=== PATIENT | male | born 1965 | race Two or more races ===

== ENCOUNTER → 2018-09-08 | Day surgery (SDC) | payer OTHER ==
[~2018-09-08] MED LIST: CETI10TA22 PO; GABA600T7 PO; LIDOCAINE 1% PF 2 ML VIAL. ID PRN; LISI10TA2 PO; MIDAZOLAM HCL/PF 2 MG/2 ML VIAL. IV PRN; PANT20TA2 PO; PENT400T7 PO; PROPOFOL 40 ML IV ONE; fentaNYL PF VIAL 100 MCG/2 ML VIAL IV PRN
[2018-09-08] MEDS: IV RINGERS,LACTATED 1000ML 1,000 ML IV SCH ×2 (08:17→09:26)
[2018-09-08 10:11] VITALS: BP 136/89
--- NOTE | 2018-09-09 17:13 | PATHOLOGY ---
[facility] Accession Number: [id number] . 01 Material submitted: . PART A: BIOPSY ANTRUM PART B: BIOPSY INCISURE PART C: BIOPSY DISTAL GASTRIC BODY PART D: BIOPSY PROXIMAL GASTRIC BODY PART E: BIOPSY CARDIA PART F: BIOPSY FUNDUS PART G: BIOPSY GASTRIC POLYPS PART H: BIOPSY IRREGULAR Z LINE GE JUNCTION . 01 Clinical history: . Intestinal metaplasia . 02 Diagnosis: A. Gastric biopsy, antrum: - Chronic gastritis, mild. . B. Gastric biopsy, incisura: - Chronic gastritis, mild. . C. Gastric biopsy, distal gastric body: - Mild superficial chronic gastritis. . D. Gastric biopsy, proximal gastric body: - Mild superficial chronic gastritis. . E. Gastric biopsy, gastric cardia: - Mild superficial chronic gastritis. . F. Gastric biopsy, gastric fundus: - Mild superficial chronic gastritis. . G. Gastric biopsy, gastric polyps: - Fundic gland polyps. . H. Gastroesophageal junction biopsy, irregular Z-line: - Segments of esophagogastric mucosa showing chronic inflammation, consistent with reflux changes. . (LILIAM:carmella; 09/09/2018) MBR/09/09/2018 . 02 Comment: Sections of the gastric antral biopsy reveal segments of gastric antral and antral/body transition mucosa showing mild chronic inflammation. A properly controlled immunoperoxidase stain for Helicobacter is negative for Helicobacter organisms. Sections of the gastric incisura biopsy reveal segments of gastric body mucosa showing mild chronic inflammation. Sections of the distal gastric body, proximal gastric body, gastric cardia, and gastric fundic biopsies appear similar and show a mild superficial chronic gastritis. Immunoperoxidase stains for Helicobacter are obtained on the distal gastric body, proximal gastric body, gastric cardia, and gastric fundic biopsies, all of which are negative for Helicobacter organisms. All of the gastric biopsies show no evidence of intestinal metaplasia, dysplasia, or malignancy. Sections of the gastric polyp biopsies reveal four fundic gland polyps. There are no adenomatous changes or evidence of malignancy. Sections of the gastroesophageal junction biopsy reveal segments of esophagogastric mucosa showing chronic inflammation. The esophageal mucosa focally appears mildly hyperplastic and contains a few intraepithelial eosinophils. The findings are consistent with reflux changes. There is no evidence of Mckinney's change, dysplasia, or malignancy. . Special stains performed: Immunoperoxidase stains for Helicobacter on A1, C1, D1, E1, F1. . (JPM:waterproof bag sewer; 09/09/2018) . 02 Electronically signed: . Newton Matthew MD, Pathologist NPI- [id number] . 01 Gross description: . A. Received in formalin labeled "Toribio Charliephilipp, BX antrum," is a single segment of lees soft tissue measuring 0.5 cm in maximum dimension. The specimen is entirely submitted in cassette A1. . B. Received in formalin labeled "Toribio Charliedanetteat, BX incisure," are 2 segments of lees soft tissue measuring 1.0 x 0.3 x 0.2 cm in aggregate dimensions and ranging from 0.4 to 0.6 cm in maximum dimension. The specimen is submitted entirely in cassette B1. . C. Received in formalin labeled "Rooney, Charliedanetteat, BX distal gastric body," are 4 segments of lees soft tissue measuring 1.0 x 0.6 x 0.2 cm in aggregate dimensions and ranging from 0.3 to 0.5 cm in maximum dimension. The specimen is submitted entirely in cassette C1. . D. Received in formalin labeled "Rooney, [place], BX proximal gastric body," are 4 segments of lees soft tissue measuring 0.8 x 0.6 x 0.1 cm in aggregate dimensions and ranging from 0.2 to 0.6 cm in maximum dimension. The specimen is submitted entirely in cassette D1. . E. Received in formalin labeled "Rooney, [place], BX cardia," are 2 segments of lees soft tissue measuring 0.8 x 0.3 x 0.3 cm in aggregate dimensions and ranging from 0.2 to 0.6 cm in maximum dimension. The specimen is submitted entirely in cassette E1. . F. Received in formalin labeled "Rooney, [place]alk[place], BX fundus," are 3 segments of lees soft tissue measuring 0.8 x 0.6 x 0.2 cm in aggregate dimensions and ranging from 0.3 to 0.5 cm in maximum dimension. The specimen is submitted entirely in cassette F1. . G. Received in formalin labeled "Magdiel Rooney, CHUCK gastric polyps," are 4 segments of lees soft tissue measuring 1.2 x 0.9 x 0.3 cm in aggregate dimensions and ranging from 0.2 to 0.4 cm in maximum dimension. The specimen is submitted entirely in cassette G1. . H. Received in formalin labeled "Magdiel Rooney, CHUCK irregular Z line, GE junction," is a single segment of lees soft tissue measuring 0.6 cm in maximum dimension. The specimen is entirely submitted in cassette H1. (TSD; 09/08/2018) TOB/TOB . 02 Pathologist provided ICD-10: K29.50, K29.30, K31.7, K21.9 . 02 CPT . 988497, 583111, 231449, [id number], 284506, 201409, [id number], [id number] Specimen Comment: A courtesy copy of this report has been sent to Specimen Comment: [phone], . Specimen Comment: Report sent to / DR JACKSON Specimen Comment: A duplicate report has been generated due to demographic updates. Performed at: 01 [facility] [address], [place] [id number] MD Thomas Valdez MD Phone: [phone] Performed at: 02 [facility] [address] [place] [id number] MD Newton Matthew MD Phone: [phone]
== END | disposition home or self-care (01) ==
LOC: SURG 07:53
PROVIDERS: ATTEND Internal Medicine
DX: K31.7 Polyp of stomach and duodenum (principal); K29.30 Chronic superficial gastritis without bleeding; K21.0 Gastro-esophageal reflux disease with esophagitis; K64.1 Second degree hemorrhoids; K64.4 Residual hemorrhoidal skin tags; K31.89 Other diseases of stomach and duodenum; I10 Essential (primary) hypertension; K21.9 Gastro-esophageal reflux disease without esophagitis; E66.9 Obesity, unspecified; Z68.32 Body mass index [BMI] 32.0-32.9, adult; Z98.890 Other specified postprocedural states; Z79.899 Other long term (current) drug therapy
CPT/HCPCS: 43239; 45378; 88305; 88342; J2704